=== PATIENT | male | born 1980 | race Two or more races ===

== ENCOUNTER 2017-01-21 10:25 | Emergency (ER) | payer SELFPAY ==
--- NOTE | ~2017-01-21 | ER ---
PATIENT'S NAME: [facility] AGE: 36 Y [address] ROOM: [place] [address] LOCATION: [facility] ADMIT DATE: 01/21/2017 ER/Outpatient Report DISCHARGE DATE: 01/21/2017 FAMILY PHYSICIAN: Physician, Unknown ATTENDING PHYSICIAN: Bre Rider Time of Arrival: 1025. Time Seen: 1118. IDENTIFICATION: A 36-year-old male. CHIEF COMPLAINT: Chest pain. HISTORY OF PRESENT ILLNESS: The patient is a 36-year-old male from [place], who presents with the complaints of chest pressure, left-sided, no radiation, and pain in his low back that started after taking meloxicam at 9:00 a.m. this morning. He has had this happened several years ago back in the with a negative workup at that time. He has not had problems since that time. No family history of premature coronary artery disease. EMS gave him two sublingual nitroglycerin and 4 baby aspirin. At this time, he is pain free. PAST MEDICAL HISTORY: ALLERGIES: NO KNOWN DRUG ALLERGIES. CURRENT MEDICATIONS: 1. Zantac p.r.n. 2. Meloxicam p.r.n. 3. Advil p.r.n. MEDICAL PROBLEMS: Chronic back pain, gastroesophageal reflux disease. PRIOR SURGERIES: Denies. FAMILY HISTORY: Brother with a pacemaker at age 38. Sister secondary to lung cancer. SOCIAL HISTORY: The patient is from [place]. He has lived at variety of places, originally from PATIENT'S NAME: [facility] AGE: 36 Y [address] ROOM: [place] [address] LOCATION: [facility] ADMIT DATE: 01/21/2017 ER/Outpatient Report DISCHARGE DATE: 01/21/2017 FAMILY PHYSICIAN: Physician, Unknown ATTENDING PHYSICIAN: Bre Rider [place]. Tobacco use; denies. Alcohol use; the patient states occasional, no recent use. Drug use; the patient denies drug use. REVIEW OF SYSTEMS: All systems reviewed and negative other than what is noted in the HPI. Again, he is pain-free at this time. PHYSICAL EXAMINATION: HEENT: Normocephalic, atraumatic. HEENT: Ears: TMs translucent to both ears. Eyes: Pupils equal and reactive to light and accommodation. Extraocular movements intact. Conjunctivae clear. Nose: Mucosa pink. No lesions or drainage. Mouth: No lesions. Pharynx benign. NECK: Supple. No lymphadenopathy. No thyromegaly. LUNGS: Clear to auscultation. HEART: Regular rate and rhythm. ABDOMEN: Soft, nondistended, nontender. SKIN: [place], warm, and dry. No lesions or rashes noted. NEUROLOGIC: The patient is alert and oriented x4. Cranial nerves 2 through 12 grossly intact. Motor strength is 5/5 throughout. Sensation is intact to light touch. No lower extremity edema. No calf tenderness. Neuro exam, no focal deficit. All of this history and exam was performed with the heavy equipment service technician from [facility], Desirae franco. LABORATORY DATA: EKG; pre-hospital, normal sinus tachycardia at 107 beats per minute. No acute ST elevation or depression. Initial EKG obtained here at 10:31 a.m., sinus tachycardia. Nonspecific ST-T wave changes. Repeat EKG at 12:18, sinus tachycardia at 103 beats per minute, nonspecific ST-T wave changes are present. D-dimer less than 0.19. Alcohol level less than 0.010. ProBNP 89, sodium 138, potassium 4.1, chloride 103, CO2 of 25, BUN 11, creatinine 1.1, blood sugar 119. Liver enzymes normal. Magnesium 2.4. CPK 285, CK-MB 4.3, troponin I less than 0.040. Hemoglobin 15.1, hematocrit 45.4, platelets 304, white count 8.6, normal differential. INR 1.0. UA negative. Urine drug screen positive for amphetamines and cocaine. Repeat cardiac enzymes; CPK 277, CK-MB 4.3, troponin I less than 0.040. Two-view chest x-ray, no acute process, pending radiology over-read. IMPRESSION AND PLAN: 1. Chest pain, mildly elevated CPK-MB, stable at 0 and 2 hours. I did discuss this with Dr. Hammond as well as the patient. At this time, he does not want to stay in the hospital. I have recommended that he be PATIENT'S NAME: ROSSI JENSEN [facility] AGE: 36 Y [address] ROOM: [place] [address] LOCATION: [facility] ADMIT DATE: 01/21/2017 ER/Outpatient Report DISCHARGE DATE: 01/21/2017 FAMILY PHYSICIAN: Physician, Unknown ATTENDING PHYSICIAN: Bre Rider discharged home. No caffeine, alcohol, or drugs. The patient asked about a heart healthy diet. A copy of healthy diet in Hebrew was provided for him, no energy drinks. 2. Substance abuse. He did admit to using drugs on Friday, so I recommend no alcohol or drugs. No caffeine. [facility] 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 Follow up sooner if any problems or concerns. The patient does understand and agree, and all questions have been answered, and all of this was obtained through the heavy equipment service technician. MD MARCO STARK/jaron /[id number] d: 01/21/17 2256 t: 01/28/17 1423, OUTPATIENT REPORT
[2017-01-21 11:07] LABS: BASOPHIL % 0.5 %; EOSINOPHIL % 0.1 %; HEMATOCRIT 45.4 % (37.0-53.0); HEMOGLOBIN 15.1 g/dL (12.0-17.0); IMMATURE GRANULOCYTE % 0.2 %; LYMPHOCYTE % 11.6 %; MCH 27.5 pg (27.0-34.0); MCHC 33.3 gm/dL (32.0-36.5); MCV 82.7 fl (83.0-98.0); MONOCYTE # 0.7 K/uL (0.0-1.0); MONOCYTE % 8.5 %; MPV 9.8 fl (9.4-12.4); NEUTROPHIL # (ANC) 6.8 K/uL (1.4-9.0); NEUTROPHIL % 79.1 %; NRBC % 0 /100WBC (0-0.00); PLATELET COUNT 304 K/uL (150-450); RBC 5.49 M/uL (4.00-6.00); RDW-CV 13.9 % (11.9-14.6); WBC 8.6 K/uL (4.0-11.0)
[2017-01-21 11:12] LABS: PROTIME 10.1 SECONDS (9.6-11.1); PTT 25 SECONDS (25-32)
[2017-01-21 11:23] LABS: ALBUMIN 4.2 gm/dL (3.5-5.0); ALK PHOS 82 IU/L (33-138); ALT 34 IU/L (12-78); ANION GAP 14.1 (10.0-19.0); AST 15 IU/L (10-40); BLOOD UREA NITROGEN 11 mg/dL (6-24); CALCIUM 9.3 mg/dL (8.5-10.5); CHLORIDE 103 mMol/L (96-110); CO2 25 mMol/L (22-32); CPK 285 IU/L (35-332); CREATININE 1.1 mg/dL (0.6-1.3); ESTIMATED GFR (MDRD EQUATION) > 60; MAGNESIUM 2.4 mg/dL (1.3-2.6); POTASSIUM 4.1 mMol/L (3.7-5.1); SODIUM 138 mMol/L (135-145); TOTAL BILIRUBIN 0.3 mg/dL (0.0-1.5); TOTAL PROTEIN 8.1 g/dL (6.0-8.4)
[2017-01-21 11:52] LABS: BILIRUBIN URINE NEGATIVE (NEGATIVE); BLOOD URINE NEGATIVE /UL (NEGATIVE); COLOR URINE STRAW (YELLOW); GLUCOSE URINE NEGATIVE (NEGATIVE); KETONE URINE NEGATIVE (NEGATIVE); LEUKOCYTES URINE NEGATIVE /UL (NEGATIVE); NITRITE URINE NEGATIVE (NEGATIVE); PROTEIN URINE NEGATIVE (NEGATIVE); TURBIDITY URINE CLEAR (CLEAR); UROBILINOGEN URINE NORMAL (NORMAL)
[2017-01-21 12:10] LABS: OPIATES NEGATIVE (NEGATIVE)
[2017-01-21 12:12] LABS: AMPHETAMINE POSITIVE (NEGATIVE)
[2017-01-21 12:13] LABS: BARBITURATE NEGATIVE (NEGATIVE); COCAINE POSITIVE (NEGATIVE)
[2017-01-21 13:28] LABS: CPK 277 IU/L (35-332)
== END 2017-01-21 14:41 | disposition disaster alternative care site (69) ==
LOC: GMED 10:25
PROVIDERS: Family Medicine
DX: R07.9 Chest pain, unspecified (principal); F15.10 Other stimulant abuse, uncomplicated; K21.9 Gastro-esophageal reflux disease without esophagitis
CPT/HCPCS: G0480